=== PATIENT | female | born 1985 | race Caucasian/White ===

== ENCOUNTER 2017-01-01 20:46 | Emergency (ER) | payer OTHER | END 2017-01-01 23:52 | disposition home or self-care (01) | DX: M62.838 Other muscle spasm (principal) ==

== ENCOUNTER 2017-03-21 09:26 | Outpatient (CLI) | payer OTHER ==
[2017-03-21 18:16] LABS: BASOPHILS % (AUTO) 0.9 %; EOSINOPHILS # (AUTO) 0.2 10^3/uL (0.0-0.7); EOSINOPHILS % (AUTO) 4.7 %; HCT - HEMATOCRIT 40.5 % (37.0-47.0); HGB - HEMOGLOBIN 13.4 g/dL (12.0-16.0); LYMPHOCYTES # (AUTO) 1.5 10^3/uL (1.5-3.5); LYMPHOCYTES % (AUTO) 30.8 %; MEAN CORPUSCULAR HEMOGLOBIN 30.7 pg (27.0-31.0); MEAN CORPUSCULAR VOLUME 93.1 fL (81.0-99.0); MEAN PLATELET VOLUME 8.5 fL (7.9-10.8); MONOCYTES # (AUTO) 0.3 10^3/uL (0.0-1.0); MONOCYTES % (AUTO) 5.5 %; NEUTROPHILS # (AUTO) 2.9 10^3/uL (1.5-6.6); NEUTROPHILS % (AUTO) 58.1 %; NUCLEATED RED BLOOD CELLS AUTO 0.1 /100WBC; RED BLOOD COUNT 4.35 10^6/uL (4.20-5.40); RED CELL DISTRIBUTION WIDTH 12.4 % (12.0-15.0); UNCORRECTED WHITE BLOOD COUNT 4.9 x10^3/uL; WHITE BLOOD COUNT 4.9 x10^3/uL (4.8-10.8)
[2017-03-21 18:33] LABS: TOTAL T3 0.97 ng/mL (0.87-1.78)
[2017-03-21 18:45] LABS: THYROID STIMULATING HORMONE 1.61 uIU/mL (0.34-5.60)
[2017-03-25 15:52] LABS: T3 REVERSE 12 ng/dL (8-25)
== END 2017-03-21 09:27 | disposition home or self-care (01) ==
LOC: LAB.F 09:26
PROVIDERS: ATTEND Family Medicine
DX: E03.9 Hypothyroidism, unspecified (principal)
CPT/HCPCS: 36415; 82306; 82626; 82728; 84439; 84443; 84480; 84481; 84482; 85025

== ENCOUNTER 2017-03-23 10:22 | Outpatient (CLI) | payer OTHER ==
--- NOTE | 2017-03-23 14:13 | XRAY Report ---
COMPLETE CERVICAL SPINE: 03/23/2017 CLINICAL INDICATION: Chronic neck pain, sprain, paresthesias right upper extremity. FINDINGS: AP, lateral, oblique, and odontoid views of the cervical spine demonstrate normal height a nd alignment of the vertebral bodies. The disk spaces are preserved. No osseous neural foraminal narr owing is seen. The prevertebral soft tissues are unremarkable. IMPRESSION: NORMAL CERVICAL SPINE. JOB #: [id number] EXT JOB #:[id number]
== END 2017-03-23 10:23 | disposition home or self-care (01) ==
LOC: DI.S 10:22
PROVIDERS: ATTEND Family Medicine
DX: S13.9XXA Sprain of joints and ligaments of unspecified parts of neck, initial encounter (principal)
CPT/HCPCS: 72050

== ENCOUNTER 2020-10-28 22:32 | Emergency (ER) | payer BC, OTHER ==
--- NOTE | 2020-10-28 22:47 | ED Physician Documentation ---
PD HPI UPPER EXT INJURY - Stated complaint Stated Complaint: RT SHOULDER PX - Chief complaint Chief Complaint: Ext Problem - History obtained from History obtained from: Patient - History of Present Illness Location: Right, Shoulder Type of injury: Fall (she states she flopped backward onto the bed, onto her elbows, and noted onset of some discomfort right shoulder/clavicle area that worsened with ROM and over next 1-2 hours. Hurting more now. Guarded ROM.) Where injury occurred: Home Timing - onset: How many hours ago (3), Today Timing - duration: Hours (3) Timing - details: Abrupt onset (though not worst intensity initially, increased over couple of hours.) Improved by: Other (did not take any meds at home.). No: Rest Worsened by: Moving. No: Palpating Associated symptoms: No: Weakness, Numbness, Swelling Similar symptoms before: Has not had sx before Recently seen: Not recently seen Review of Systems Constitutional: denies: Fever, Chills Nose: denies: Rhinorrhea / runny nose, Congestion Throat: denies: Sore throat Respiratory: denies: Cough Neurologic: denies: Focal weakness, Numbness PD PAST MEDICAL HISTORY - Past Medical History Past Medical History: No - Past Surgical History Past Surgical History: Yes - Present Medications Home Medications: Ambulatory Orders Medication Instructions Recorded Confirmed Ibuprofen [Motrin] 600 mg PO TID PRN #25 tab 10/28/20 - Allergies Allergies/Adverse Reactions: Allergies Allergy/AdvReac Type Severity Reaction Status Date / Time Sulfa (Sulfonamide Allergy Intermediate Rash Verified 10/28/20 22:42 Antibiotics) acetaminophen [From Vicodin] AdvReac Intermediate vomting Verified 10/28/20 22:42 hydrocodone bitartrate * AdvReac Intermediate vomting Verified 10/28/20 22:42 [From Vicodin] - Social History Does the pt smoke?: No Smoking Status: Never smoker Does the pt drink ETOH?: No Does the pt have substance abuse?: No - Immunizations Immunizations are current?: Yes Immunizations: TDAP >10years/unknown PD ED PE NORMAL - Vitals Vital signs reviewed: Yes - General General: Alert and oriented X 3, Well developed/nourished, Other (appears in discomfort, and guarding right arm to her side. ) - Neck Neck: Supple, no meningeal sign, No bony TTP - Cardiac Cardiac: RRR, No murmur - Respiratory Respiratory: Clear bilaterally - Derm Derm: Normal color, Warm and dry - Extremities Extremities: Other (right shoulder without deformity. Tender at AC area and lateral clavicle. No noted deformity. Passive ROM and external rotation without pain. Active ROM of the arm painful anteriorly and in clavicle area. ) - Neuro Neuro: No motor deficit, No sensory deficit Results - Vitals Vitals: Vital Signs - 24 hr 10/28/20 10/28/20 22:37 23:45 Temperature 36.8 C Heart Rate 93 74 Respiratory 14 16 Rate Blood Pressure 140/76 H 116/60 O2 Saturation 100 98 Oxygen O2 Source Room air - Rads (name of study) right shoulder Radiology: Prelim report reviewed (negative right shoulder ), See rad report PD MEDICAL DECISION MAKING - ED course Complexity details: reviewed results, considered differential (Not dislocated. Tender at AC area without stepoff. Presume some AC strain and having increased local inflammation accounting for worsening pain. Presume sling and nsaids will work. Can add take home pain med to use PRN. She is driving herself home. ), d/w patient Departure - Departure Disposition: , Self Care Clinical Impression: Strain of acromioclavicular joint Qualifiers: Encounter type: initial encounter Laterality: right Qualified Code(s): S46.911A - Strain of unspecified muscle, fascia and tendon at shoulder and upper arm level, right arm, initial encounter Condition: Stable Record reviewed to determine appropriate education?: Yes Instructions: ED Sprain AC Joint Follow-Up: DAISY MAYEN ND [Primary Care Provider] - Suresh Roland MD [Provider Admit Priv/Credential] - Prescriptions: Ibuprofen [Motrin] 600 mg PO TID PRN #25 tab PRN Reason: Pain Comments: Use the sling to take pressure off the shoulder. Your x-ray appears normal without any fracture or obvious dislocation. It seems clinically that you have a strain of the ligaments at the AC joint. This should improve over several days to a week. Use the sling initially fairly regularly with gentle range of motion a few times a day. Progress use of the shoulder as tolerated after several days to a week. No heavy lifting, push pull nor overhead reaching with the shoulder for 1 to 2 weeks however until fully healed. Ibuprofen 3 times a day. Ice or cool towels/compresses to the area periodically for swelling. Add Tylenol if needed for pains. Tonight and tomorrow add the oxycodone if needed for worse pain. Preceded with ondansetron for nausea to a decrease potential side effects. Discharge Date/Time: 10/28/20 23:46
[2020-10-28] MEDS ORDERED: IBUPROFEN 600 MG TABLET PO STA (22:57)
[2020-10-28] MEDS ORDERED: ACETAMINOPHEN 325 MG TABLET PO STA (22:57)
[2020-10-28] MEDS ORDERED: ONDANSETRON ODT 4 MG Prepack 2 TL PRN (23:33)
[2020-10-28] MEDS ORDERED: oxyCODONE/ACET 5/325 Prepack 4 PO STA (23:33)
[2020-10-28 23:45] VITALS: BP 116/60
--- NOTE | 2020-10-29 09:07 | XRAY Report ---
PROCEDURE: Shoulder 3 View RT INDICATIONS: right shoulder pain/injury this evening TECHNIQUE: 3 views of the shoulder were acquired. COMPARISON: None. FINDINGS: Bones: No fractures or dislocations. No suspicious bony lesions. Visualized ribs appear intact. Soft tissues: No suspicious soft tissue calcifications. IMPRESSION: No evidence acute bony abnormality of the right shoulder. A preliminary report with the above findings was provided at the time of the study by [facility]. Reviewed by: Dusty Dahl MD on 10/29/2020 9:05 AM [facility] Approved by: Dusty Dahl MD on 10/29/2020 9:05 AM [facility] Station ID: [id number]
== END 2020-10-28 23:46 | disposition home or self-care (01) ==
LOC: ED 22:32
DX: S46.911A Strain of unspecified muscle, fascia and tendon at shoulder and upper arm level, right arm, initial encounter (principal); X50.1XXA Overexertion from prolonged static or awkward postures, initial encounter; Y93.89 Activity, other specified; Y92.003 Bedroom of unspecified non-institutional (private) residence as the place of occurrence of the external cause
CPT/HCPCS: 73030; 99283; 99284; A9270

== ENCOUNTER 2021-09-05 08:16 | Outpatient (CLI) | payer BC ==
--- NOTE | 2021-09-05 10:17 | Ultrasound Report ---
PROCEDURE: Abdomen Complete INDICATIONS: UPPER ABDOMINAL PAIN, POLYNEUROPATHY TECHNIQUE: Real-time scanning was performed of the abdominal and retroperitoneal organs, with image documentatio n. COMPARISON: None. FINDINGS: Liver: The liver demonstrates normal size. The liver demonstrates mildly increased echogenicity, whi ch limits ultrasound sensitivity for detection of masses. Gallbladder: No gallstones or significant sludge can be seen. The gallbladder wall does not appear th ickened. There is no specific pericholecystic fluid. The sonographic Leon's sign is negative. Biliary ducts: Intrahepatic bile ducts are non-dilated. Extrahepatic bile duct caliber measures 4 m m. Normal is 6-7 mm or less in diameter, or 10 mm or less post-cholecystectomy. Pancreas: Visualized portions of the pancreas are sonographically normal. Spleen: Spleen is normal in size and homogeneous in echotexture. Kidneys: Kidneys are normal in size and echotexture. Right kidney measures 11.7 cm long; left kidne y measures 11.3 cm long. No nephrolithiasis. No solid masses. Left kidney caliectasis can be seen, without linn hydronephrosis. Aorta: Visualized aorta is normal in caliber at less than 3 cm. Iliacs: Proximal common iliac arteries are normal in caliber at less than 2.5 cm. IVC: Intrahepatic inferior vena cava is patent. Miscellaneous: No free abdominal fluid. IMPRESSION: The gallbladder demonstrates a normal sonographic appearance. No biliary dilatation is s een. Increased liver echogenicity is seen. This is nonspecific, yet it is most commonly attributed to fatt y infiltration. Left kidney caliectasis, without linn hydronephrosis. Reviewed by: Toby Ross MD on 09/05/2021 9:15 AM [facility] [[email or web address]] Approved by: Toby Ross MD on 09/05/2021 9:15 AM [facility] [[email or web address]] Station ID: [id number]
== END 2021-09-05 08:17 | disposition home or self-care (01) ==
LOC: DI 08:16
PROVIDERS: ATTEND Acupuncturist
DX: N28.89 Other specified disorders of kidney and ureter (principal); R10.10 Upper abdominal pain, unspecified

== ENCOUNTER 2022-10-07 12:16 | Outpatient (CLI) | payer BC ==
--- NOTE | 2022-10-07 14:59 | Ultrasound Report ---
PROCEDURE: Pelvic w/Transvaginal INDICATIONS: PELVIC PAIN TECHNIQUE: Real-time scanning was performed of the pelvic organs, with image documentation. Additional endovagi nal scanning was necessary due to incomplete visualization of the adnexal and endometrial structures by transabdominal scanning. COMPARISON: 7 of abdomen dated 09/05/2021. FINDINGS: Uterus: Uterus is anteverted and normal in size at 8.7 x 4.6 x 6.0 cm. The myometrium is mildly het erogeneous. No discrete uterine fibroid is seen. The endometrium measures 8.2 mm in combined thickne ss. No discrete endometrial mass or fluid is noted. Ovaries: The right ovary measures 4 x 2.4 x 2.3 cm, with a calculated ovarian volume of 11.5 cc. Th e left ovary measures 2.7 x 1.7 x 1.7 cm, with a calculated ovarian volume of 4.1 cc. The ovaries diez ve a normal sonographic appearance. Less than 12 follicles can be seen in each ovary. No adnexal ma sses are seen. Dominant follicle is noted in left ovary measures 1.1 x 0.9 x 1.1 cm in size. Possible involuting/resolving hemorrhagic cyst is noted in right ovary measures 2.4 x 2 x 2.5 cm in size. Other: No pathologic free abdominal or pelvic fluid. IMPRESSION: 1. Mildly heterogeneous myometrium. No discrete uterine fibroid is seen. 2. No endometrial mass or fluid. 3. Resolving hemorrhagic cyst in right ovary and dominant follicle in left ovary as above. No solid-a ppearing ovarian lesion. Reviewed by: Shukri Cesar MD on 10/07/2022 2:58 PM PST Approved by: Shukri Cesar MD on 10/07/2022 2:58 PM PST Station ID: [id number]
== END 2022-10-07 12:17 | disposition home or self-care (01) ==
LOC: DI 12:16
PROVIDERS: ATTEND Family Medicine
DX: R10.2 Pelvic and perineal pain (principal); N93.8 Other specified abnormal uterine and vaginal bleeding; N83.201 Unspecified ovarian cyst, right side

== ENCOUNTER 2023-12-23 15:28 | Outpatient (CLI) | payer BC ==
--- NOTE | 2023-12-23 16:43 | Ultrasound Report ---
PROCEDURE: Pelvic w/Transvaginal INDICATIONS: DUB TECHNIQUE: Real-time scanning was performed of the pelvic organs, with image documentation. Additional endovagi nal scanning was necessary due to incomplete visualization of the adnexal and endometrial structures by transabdominal scanning. COMPARISON: 10/07/2022. FINDINGS: Uterus: Uterus is anteverted and normal in size at 9.4 x 4.8 x 5.5 cm. The myometrium is heterogene ous. The endometrium measures 8 mm in combined thickness. No uterine fibroids. Ovaries: The right ovary measures 1.9 x 1.9 x 1.8 cm cm, with a calculated ovarian volume of 3.4 cc. Likely corpus luteal cyst measuring 1.2 cm The left ovary measures 2.0 x 1.3 x 1.5 cm cm, with a ca lculated ovarian volume of 2.0 cc. The dominant follicle measuring 1.3 cm. The ovaries have a normal sonographic appearance. Less than 12 follicles can be seen in each ovary. No adnexal masses are se en. No cystic lesions measuring greater than 3 cm. Other: No pathologic free abdominal or pelvic fluid. IMPRESSION: 1.Endometrial echo complex is normal in thickness for patient's age. No cause for patient's symptoms is identified. 2.Likely corpus luteal cyst within the right ovary measuring 1.2 cm. Reviewed by: Daniele Costa MD on 12/23/2023 4:42 PM PDT Approved by: Daniele Costa MD on 12/23/2023 4:42 PM PDT Station ID: [id number]
== END 2023-12-23 15:29 | disposition home or self-care (01) ==
LOC: DI 15:28
PROVIDERS: ATTEND Family Medicine
DX: N93.8 Other specified abnormal uterine and vaginal bleeding (principal)

== ENCOUNTER 2024-02-28 12:45 | Outpatient (CLI) | payer BC ==
[2024-02-28 15:11] LABS: BASOPHILS # (AUTO) 0.1 10^3/uL (0.0-0.1); BASOPHILS % (AUTO) 0.5 %; EOSINOPHILS # (AUTO) 0.2 10^3/uL (0.0-0.7); HCT - HEMATOCRIT 41.9 % (37.0-47.0); HGB - HEMOGLOBIN 13.4 g/dL (12.0-16.0); LYMPHOCYTES # (AUTO) 1.7 10^3/uL (1.5-3.5); LYMPHOCYTES % (AUTO) 15.8 %; MEAN CORPUSCULAR HEMOGLOBIN 30.1 pg (27.0-31.0); MEAN CORPUSCULAR VOLUME 94.2 fL (81.0-99.0); MEAN PLATELET VOLUME 9.3 fL (7.9-10.8); MONOCYTES # (AUTO) 0.7 10^3/uL (0.0-1.0); MONOCYTES % (AUTO) 6.3 %; NEUTROPHILS # (AUTO) 7.9 10^3/uL (1.5-6.6); NEUTROPHILS % (AUTO) 75.1 %; PLT - PLATELET COUNT 326 10^3/uL (130-450); RED BLOOD COUNT 4.45 10^6/uL (4.20-5.40); RED CELL DISTRIBUTION WIDTH 11.6 % (12.0-15.0); WHITE BLOOD COUNT 10.5 x10^3/uL (4.8-10.8)
[2024-02-28 16:07] LABS: THYROID STIMULATING HORMONE 2.48 uIU/mL (0.34-5.60)
[2024-02-28 16:43] LABS: ALBUMIN 4.8 g/dL (3.2-5.5); ALBUMIN/GLOBULIN RATIO 1.5 (1.0-2.2); BILIRUBIN,TOTAL 0.5 mg/dL (0.2-1.0); CREATININE 0.7 mg/dL (0.6-1.3); POTASSIUM 4.1 mmol/L (3.5-4.5)
== END 2024-02-28 12:46 | disposition home or self-care (01) ==
LOC: LAB.S 12:45
PROVIDERS: ATTEND Emergency Medicine
DX: R59.0 Localized enlarged lymph nodes (principal)
CPT/HCPCS: 36415; 80053; 84443; 85025